=== PATIENT | male | born 1980 | race Caucasian/White ===

== ENCOUNTER 2016-10-06 18:08 | Emergency (ER) | payer OTHER ==
--- NOTE | 2016-10-06 18:55 | ER Document Report ---
ED Medical Screen (RME) - General Stated Complaint: RIGHT FLANK PAIN Time Seen by Provider: 10/06/16 18:44 Mode of Arrival: Ambulatory Information source: Patient Notes: Patient presents emergency department with multiple complaints. Patient reports approximately 1 and half months ago he started having right flank pain. He reports history of kidney stones. He reports 3 weeks ago his right foot started hurting. He reports the foot hurts so bad he can barely walk. Patient ambulating without limp, wearing flip flops. Reports pain also in his right hand /thumb. Reports pain to the left side of his jaw. Pt talking without problems , clear voice. He reports he was evaluated for cloudy urine about a month and a half ago at an urgent care, treated with antibiotics and seemed to get better. He denies pain with void now. He reports he is gaining weight even though he has decreased appetite and is often very fatigued. Pt looks good nontoxic looking, no distress.
[2016-10-06 19:42] LABS: ABSOLUTE BASOPHILS # (AUTO) 0.1 10^3/uL (0.0-0.2); ABSOLUTE EOSINOPHILS # (AUTO) 0.4 10^3/uL (0.0-0.6); ABSOLUTE LYMPHOCYTES (AUTO) 2.3 10^3/uL (0.5-4.7); ABSOLUTE MONOCYTES (AUTO) 0.6 10^3/uL (0.1-1.4); ABSOLUTE NEUT (AUTO) 5.2 10^3/uL (1.7-8.2); BASOPHILS % (AUTO) 1.1 % (0-2); EOSINOPHILS % (AUTO) 4.1 % (0-6); HEMOGLOBIN 13.8 g/dL (13.5-17.0); HGB HCT DIFFERENCE -0.6; LYMPHOCYTES % (AUTO) 27.3 % (13-45); MEAN CORPUSCULAR HGB CONC 32.8 g/dL (32.0-36.0); MEAN CORPUSCULAR VOLUME 94 fl (80-97); MONOCYTES % (AUTO) 6.7 % (3-13); RED BLOOD COUNT 4.45 10^6/uL (4.35-5.55); RED CELL DISTRIBUTION WIDTH 12.9 % (11.5-14.0); SEGMENTED NEUTROPHILS % (AUTO) 60.8 % (42-78); WHITE BLOOD COUNT 8.5 10^3/uL (4.0-10.5)
[2016-10-06 19:45] LABS: APPEARANCE,URINE CLEAR; BILIRUBIN,URINE NEGATIVE (NEGATIVE); GLUCOSE, URINE NEGATIVE (NEGATIVE); KETONES,URINE NEGATIVE (NEGATIVE); LEUKOCYTE ESTERASE,URINE NEGATIVE (NEGATIVE); NITRITE,URINE NEGATIVE (NEGATIVE); PROTEIN,URINE NEGATIVE (NEGATIVE); URINE SPECIFIC GRAVITY 1.012; UROBILINOGEN,URINE NEGATIVE mg/dL (<2.0)
[2016-10-06 20:00] LABS: ALANINE AMINOTRANSFERASE 31 U/L (21-72); ALBUMIN 4.3 g/dL (3.5-5.0); ALKALINE PHOSPHATASE 83 U/L (38-126); ANION GAP 11 (5-19); ASPARTATE AMINO TRANSFERASE 20 U/L (17-59); BILIRUBIN,DIRECT 0.3 mg/dL (0.0-0.4); BILIRUBIN,TOTAL 0.5 mg/dL (0.2-1.3); BLOOD UREA NITROGEN 22 mg/dL (7-20); CALCIUM 9.9 mg/dL (8.4-10.2); CARBON DIOXIDE 26 mmol/L (22-30); CHLORIDE 105 mmol/L (98-107); CREATININE RESULT 1.03 mg/dL (0.52-1.25); GLUCOSE 85 mg/dL (75-110); POTASSIUM 4.6 mmol/L (3.6-5.0); SODIUM 142.2 mmol/L (137-145); TOTAL PROTEIN 7.7 g/dL (6.3-8.2)
--- NOTE | 2016-10-06 20:11 | RADIOLOGY REPORT (SQ) ---
EXAM DESCRIPTION: FOOT RIGHT COMPLETE COMPLETED DATE/TIME: 10/06/2016 7:55 pm REASON FOR STUDY: foot and hand pain COMPARISON: None. NUMBER OF VIEWS: Three views. TECHNIQUE: AP, lateral and oblique radiographic images acquired of the right foot. LIMITATIONS: None. FINDINGS: MINERALIZATION: Normal. BONES: No acute fracture or dislocation. No worrisome bone lesions. JOINTS: No effusions. SOFT TISSUES: No soft tissue swelling. No foreign body. OTHER: No other significant finding. IMPRESSION: NEGATIVE STUDY OF THE RIGHT FOOT. NO RADIOGRAPHIC EVIDENCE OF ACUTE INJURY. TECHNICAL DOCUMENTATION: JOB ID: [id number] [employer]- All Rights Reserved
--- NOTE | 2016-10-06 20:12 | RADIOLOGY REPORT (SQ) ---
EXAM DESCRIPTION: HAND RIGHT 3 VIEWS COMPLETED DATE/TIME: 10/06/2016 7:55 pm REASON FOR STUDY: foot and hand pain COMPARISON: None. EXAM PARAMETERS: NUMBER OF VIEWS: Three views. TECHNIQUE: AP, lateral and oblique radiographic images acquired of the right hand. LIMITATIONS: None. FINDINGS: MINERALIZATION: Normal. BONES: No acute fracture or dislocation. No worrisome bone lesions. JOINTS: No effusions. SOFT TISSUES: No soft tissue swelling. No foreign body. OTHER: No other significant finding. IMPRESSION: NEGATIVE STUDY OF THE RIGHT HAND. NO RADIOGRAPHIC EVIDENCE OF ACUTE INJURY. TECHNICAL DOCUMENTATION: JOB ID: [id number] [employer]- All Rights Reserved
--- NOTE | 2016-10-06 20:49 | ER Document Report ---
ED General - General Chief Complaint: Flank Pain Stated Complaint: RIGHT FLANK PAIN Time Seen by Provider: 10/06/16 18:44 Mode of Arrival: Ambulatory Information source: Patient Notes: Patient presents emergency department with multiple complaints. Patient reports approximately 1 and half months ago he started having right flank pain. He reports history of kidney stones. He reports 3 weeks ago his right foot started hurting. He reports the foot hurts so bad he can barely walk. Patient ambulating without limp, wearing flip flops. Reports pain also in his right hand /thumb. Reports pain to the left side of his jaw. Pt talking without problems , clear voice. He reports he was evaluated for cloudy urine about a month and a half ago at an urgent care, treated with antibiotics and seemed to get better. He denies pain with void now. He reports he is gaining weight even though he has decreased appetite and is often very fatigued. Pt looks good nontoxic looking, no distress. TRAVEL OUTSIDE OF THE [place] IN LAST 30 DAYS: No - HPI Onset: Other - over a month Onset/Duration: Persistent Quality of pain: Achy Severity: Severe Pain Level: 4 Associated symptoms: None Exacerbated by: Denies Relieved by: Denies Similar symptoms previously: No Recently seen / treated by doctor: No Past Medical History - General Information source: Patient - Social History Smoking Status: Current Every Day Smoker Cigarette use (# per day): Yes Frequency of alcohol use: None Drug Abuse: None Occupation: base Lives with: Family Family History: None Patient has suicidal ideation: No Patient has homicidal ideation: No Renal/ Medical History: Reports: Hx Kidney Stones. Denies: Hx Peritoneal Dialysis Surgical Hx: Negative Review of Systems - Review of Systems Notes: Review HPI for review of systems., All other systems negative Physical Exam - Vital signs Vitals: Temp Pulse BP Pulse Ox 98.2 F 76 136/80 H 100 10/06/16 20:34 10/06/16 20:34 10/06/16 20:34 10/06/16 20:34 - Notes Notes: PHYSICAL EXAMINATION: GENERAL: Well-appearing and in no acute distress HEAD: Atraumatic, normocephalic. EYES: Pupils equal round and reactive to light, extraocular movements intact, sclera anicteric, conjunctiva are normal. ENT: nares patent, Moist mucous membranes. no pharyngeal exudate, opens/closes mouth without problems NECK: Normal range of motion, supple no lymphadenopathy LUNGS: CTAB and equal. No wheezes rales or rhonchi. HEART: Regular rate and rhythm without murmurs ABDOMEN: Soft, no tenderness. No guarding, no rebound BACK: C/O RIGHT CVA TTP EXTREMITIES: Normal range of motion, no pitting edema. No cyanosis. c/o right hand right foot pain, brisk cap refill, no obvious deformity to hand or foot NEUROLOGICAL: Cranial nerves grossly intact. Normal sensory/motor exams. PSYCH: Normal mood, normal affect. SKIN: Warm, Dry, normal turgor, no rashes or lesions noted, healing insect bite to LLL, no erythema,no warmth Course - Re-evaluation Re-evalutation: 10/06/16 21:10 Labs unremarkable x-rays negative during discussion with patient on his labs he reports that he had a tick bite last week in his left lower calf. Site looks benign. lymes Test ordered. patient provided with copies of all his labs. Patient was instructed on the importance of follow-up with her primary care provider for recheck. - Vital Signs Vital signs: Temp Pulse Resp BP Pulse Ox 97.9 F 75 16 137/75 H 100 10/06/16 20:54 10/06/16 20:54 10/06/16 20:54 10/06/16 20:54 10/06/16 20:54 - Laboratory Result Diagrams: 10/06/16 19:28 10/06/16 19:28 Laboratory results interpreted by me: 10/06/16 19:28 BUN 22 H - Diagnostic Test Radiology reviewed: Image reviewed, Reports reviewed - neg hand and foot xray Discharge - Discharge Clinical Impression: Right flank pain, Right foot pain, Right hand pain Tick bite Qualifiers: Encounter type: initial encounter Qualified Code(s): W57.XXXA - Bitten or stung by nonvenomous insect and other nonvenomous arthropods, initial encounter Condition: Stable Disposition: HOME, SELF-CARE Instructions: Flank Pain ([facility]), Tick Bites ([facility]), Doxycycline ([facility]), Family Physicians / Practices Additional Instructions: *You have been evaluated for flank pain, foot and hand pain, fatigue, tick bite *Take medication as prescribed *A lymes test is pending. You may contact the [facility] nurse at [phone] Wednesday between 8-4 for results *Follow up with a primary care provider within one week *Return to ED for worsening condition, changes, needs *Return to ED if not better in 24 hours Prescriptions: Doxycycline Monohydrate [Monodox] 100 mg PO BID #20 capsule Forms: Return to Work
[2016-10-06 20:56] VITALS: BP 137/75
[2016-10-09 06:21] LABS: LYME DISEASE IGG AND IGM AB <0.91 ISR (0.00-0.90)
== END 2016-10-06 20:58 | disposition home or self-care (01) ==
LOC: ER 18:08
DX: R10.9 Unspecified abdominal pain (principal); M79.671 Pain in right foot; M79.641 Pain in right hand; F17.210 Nicotine dependence, cigarettes, uncomplicated; Z87.442 Personal history of urinary calculi
CPT/HCPCS: 36415; 80053; 81001; 84443; 85025; 86617; 86618; 99284